=== PATIENT | female | born 1945 | race Caucasian/White ===

== ENCOUNTER 2017-08-12 07:37 | Observation (INO) ==
[2017-08-12] MEDS ORDERED: SALINE FLUSH 10ml SYRINGE IVF PRN (07:48)
[2017-08-12] MEDS ORDERED: ALBUTEROL/IPRATROPIUM 2.5mg-0.5mg/3ml NEB AEROSOL ONE (07:49)
--- NOTE | 2017-08-12 08:01 | Emergency Department Report ---
General Adult HPI - General Chief complaint: Shortness of Breath/Dyspnea Stated complaint: soa Time Seen by Provider: 08/12/17 07:48 Source: patient Mode of arrival: ambulatory Limitations: no limitations - History of Present Illness HPI narrative: 71-year-old female presents to the emergency department with the chief complaint of dyspnea. She notes the dyspnea increases with exertion and improves with rest. She denies any current pain or discomfort. She states that she was at home when her symptoms began on Tuesday of this past week. On Tuesday she saw her primary care physician and was given a breathing treatment and Solu-Medrol and had a chest x-ray performed. She is unaware of the results of the chest x-ray. She has no other complaints or associated symptoms at this time. Symptoms been persistent in nature since onset. She does note a mild nonproductive cough. - Related Data Home Medications Medication Instructions Recorded Confirmed Fish Oil/[place]-3 Fatty Acids (Fish 1 cap PO DAILY #0 01/22/09 08/12/17 Oil 1,000 Mg Capsule) Aspirin 325 mg PO PRN #0 02/24/11 08/12/17 Guaifenesin (Mucinex) 1 tab PO PRN #0 02/24/11 08/12/17 L. Acidophilus/Pectin, [place] 1 udtab PO DAILY #0 05/06/11 08/12/17 [Acidophilus Caplet] Losartan Potassium [Cozaar] 100 mg PO DAILY #0 05/06/11 08/12/17 Aspirin [Aspirin EC] 2 tab PO DAILY #0 08/13/14 08/12/17 Aspirin/Acetaminophen/Caffeine 1 tab PO Q6H PRN #0 tab 08/13/14 08/12/17 [Excedrin Migraine Caplet] Aspirin/Calcium Carbonate/Mag 2 tab PO DAILY #0 08/13/14 08/12/17 [Aspirin Buffered 325 mg Tab] Beclomethasone Dipropionate 2 spray LOYD BID PRN #0 08/13/14 08/12/17 [Beconase Aq] Fexofenadine HCl [Clarisse Allergy] 1 tab PO DAILY #0 tab 08/13/14 08/12/17 Liraglutide [Victoza] 1.8 mg SQ HS #0 08/13/14 08/12/17 Magnesium Oxide [Magnesium] 500 mg PO DAILY PRN #0 cap 08/13/14 08/12/17 Melatonin/Pyridoxine [Melatonin 3 2 tab PO HS PRN #0 08/13/14 08/12/17 mg Tablet] Meloxicam 15 mg PO DAILY PRN #0 tab 08/13/14 08/12/17 Omeprazole 1 cap PO HS #0 cap 08/13/14 08/12/17 Pioglitazone HCl/Metformin HCl 1 tab PO DAILY #0 tab 08/13/14 08/12/17 [Actoplus Met 15 mg-500 mg Tab] Tramadol HCl 50 mg PO Q6HR PRN #0 tab 08/13/14 08/12/17 Allergies Allergy/AdvReac Type Severity Reaction Status Date / Time regadenoson Allergy Mild RASH Verified 08/12/17 09:14 amoxicillin Allergy Unknown Verified 08/12/17 09:14 Review of Systems Constitutional: Denies: fever, chills Eyes: Denies: eye pain, vision change ENT: Denies: ear pain, throat pain Cardiovascular: Denies: chest pain, palpitations Respiratory: Reports: cough, dyspnea Gastrointestinal: Denies: abdominal pain, nausea, vomiting, diarrhea Genitourinary: Denies: urgency, dysuria Integumentary: Denies: erythema, rash Neurological: Denies: headache, numbness Psychiatric: Denies: anxiety, depression Endocrine: Denies: polydipsia, polyuria Hematological/Lymphatic: Denies: easy bruising, lymphadenopathy Allergic/Immunologic: Denies: facial swelling, urticaria PFSH Patient Stated Medical History Migraine Yes: HX Hypertension Yes Bronchitis Yes: HX Sleep Apnea Yes Other Respiratory Yes: SEASONAL Diabetes Mellitus Type 2 Yes Surgical History: Cardiac Catheterization Family History: Reviewed and Noncontributory. - Social History Smoking status: Never smoker Substance use type: does not use Alcohol intake frequency: does not drink Physical Exam - Limitations Limitations: no limitations - General General appearance: alert, in no apparent distress - Normal Exams: Head:: Normocephalic without trauma Eyes:: Pupils are PERRLA w/ EOMI, No scleral icterus, irritation, or foreign bodies noted ENMT:: No facial trauma, nasal exudates, pharyngeal erythema, or exudates are noted Dental: No fractured, loose, or missing teeth noted Neck:: Full range of motion, without adenopathy, JVD, bruits or thyromegaly Chest/Respirations:: Clear all smith, with good airflow, and symmetry bilaterally Cardiovascular:: Regular rate and rhythm, without murmur or gallop, Pulses 2+ all extremities, capillary refill, <2 seconds all extremities Abdomen:: Bowel sounds positive, soft, non-tender, non-distended, no hepatosplenomegaly, masses or bruits noted Lymphatic:: No lymphadenopathy, or lymphedema noted Musculoskeletal:: No tenderness, or deformity noted, good range of motion, all extremities (Trace BLE edema. ) Integumentary:: No rashes, hives, or bruising noted, hair and nails, without abnormality Neurological:: Patient is alert, and oriented, cranial nerves, motor/sensory/ cerebellar, exams w/o gross deficits, to observation Course Vital Signs Temperature 98.4 F 08/12/17 07:37 Pulse Rate 86 08/12/17 07:37 Respiratory Rate 26 H 08/12/17 07:37 Blood Pressure 178/82 H 08/12/17 07:37 Pulse Oximetry 99 08/12/17 07:37 Temperature 98.4 F 08/12/17 07:37 Pulse Rate 86 08/12/17 07:37 Respiratory Rate 20 08/12/17 07:59 Blood Pressure 149/66 H 08/12/17 09:26 Pulse Oximetry 96 08/12/17 07:59 Medical Decision Making - [facility] Narrative Medical decision making narrative: Labs / imaging were discussed in detail with the patient and family and questions are answered. Patient is reviewed with her network control supervisor Dr. Duarte who is in agreement with the current plan of management. Patient was given 324 mg of ASA po x 1. She was given 40 mg of Lasix iv x 1. No further orders from accepting physician who is in agreement with the current plan of management. Patient was accepted to the service of cardiology for further evaluation and treatment. Patient is admitted to the hospital in improved condition. Patient and family are in agreement with the current plan of management. - Differential Diagnosis Viral syndrome, PNA, CHF, Asthma,COPD - Lab Data Result diagrams: 08/12/17 08:04 08/12/17 08:04 Lab Results 08/12/17 08/12/17 Range/Units 08:04 08:04 WBC 14.9 H (4.5-11.0) T/MM3 RBC 3.24 L (4.00-5.20) M/MM3 Hgb 10.5 L (12-16) GM/DL Hct 33.4 L (36-46) % MCV 103.1 H (80-100) UM3 MCH 32.4 (26-34) UUG MCHC 31.4 (31-37) GM/DL RDW Std Deviation 47.5 (36.9-50.2) FL Plt Count 483 H (130-400) T/MM3 MPV 10.7 (9.4-12.4) UM3 Immature Gran % (Auto) Not performed Neut % (Auto) Not performed Lymph % (Auto) Not performed [place] % (Auto) Not performed Eos % (Auto) Not performed Baso % (Auto) Not performed Neut # (Auto) Not performed Lymph # (Auto) Not performed [place] # (Auto) Not performed Eos # (Auto) Not performed Baso # (Auto) Not performed Abs Immat Gran (auto) Not performed Neutrophils % (Manual) 66.0 (33-66) % Band Neutrophils % 4.0 (0-6) % Lymphocytes % (Manual) 13.0 L (23-45) % Monocytes % (Manual) 11.0 H (0-9.0) % Metamyelocytes % 4.0 H (0-0) % Myelocytes % 2.0 H (0-0) % Neutrophils # (Manual) 9.8 H (1.8-7.7) T/MM3 Band Neutrophils # 0.6 T/MM3 Lymphocytes # (Manual) 1.9 (1-4.8) T/MM3 Monocytes # (Manual) 1.6 H (0-0.8) T/MM3 Metamyelocytes # 0.6 T/MM3 Myelocytes # 0.3 T/MM3 RBC Morph Comment Normal Turbidity < 20 (0-20) Sodium 145 H (134-144) MEQ/L Potassium 4.3 (3.6-5) MEQ/L Chloride 108 H (98-107) MEQ/L Carbon Dioxide 22 (22-30) MEQ/L Anion Gap 15 (5-15) meq/L BUN 24.0 H (7-17) MG/DL Creatinine 1.1 (0.7-1.2) mg/dL GFR Calculation 49 BUN/Creatinine Ratio 22 (6-26) RATIO Glucose 124 H (65-110) MG/DL Calculated Osmolality 284 H (261-280) MOSM/KG Calcium 10.6 H (8.4-10.2) MG/DL Total Bilirubin 0.50 (0.20-1.30) MG/DL Icterus Index < 2 (0-7) AST 51 H (14-36) U/L ALT 30 (1-35) U/L Alkaline Phosphatase 57 (38-126) U/L Troponin I 0.045 (0-0.12) ng/ml NT-Pro-B Natriuret Pep 1590 H (0-175) pg/mL Total Protein 7.3 (6.3-8.2) g/dL Albumin 4.4 (3.5-5.0) g/dL Globulin 2.9 (2.4-3.6) G/DL Albumin/Globulin Ratio 1.5 (1.1-2.2) RATIO Specimen Hemolysis < 15 (0-25) - Radiology Data CXR - Impression: Persistent mild CHF. - EKG Data EKG #1 EKG results narrative: Sinus rhythm. 72 bpm. No STEMI. Disposition Clinical Impression: Congestive heart failure Qualifiers: Heart failure type: unspecified Heart failure chronicity: unspecified Qualified Code(s): I50.9 - Heart failure, unspecified [place]position: 02 [place] [facility] [place]: Stable Prescriptions: No Action Guaifenesin (Mucinex) 1 tab PO PRN #0 Aspirin/Acetaminophen/Caffeine [Excedrin Migraine Caplet] 1 tab PO Q6H PRN # 0 tab PRN Reason: PAIN Omeprazole 1 cap PO HS #0 cap Fish Oil/[place]-3 Fatty Acids (Fish Oil 1,000 Mg Capsule) 1 cap PO DAILY #0 Aspirin 325 mg PO PRN #0 L. Acidophilus/Pectin, [place] [Acidophilus Caplet] 1 udtab PO DAILY #0 Losartan Potassium [Cozaar] 100 mg PO DAILY #0 Fexofenadine HCl [[place]isse Allergy] 1 tab PO DAILY #0 tab Beclomethasone Dipropionate [Beconase Aq] 2 spray LOYD BID PRN #0 PRN Reason: PRN ORDERS Pioglitazone HCl/Metformin HCl [Actoplus Met 15 mg-500 mg Tab] 1 tab PO DAILY #0 tab Liraglutide [Victoza] 1.8 mg SQ HS #0 Aspirin/Calcium Carbonate/Mag [Aspirin Buffered 325 mg Tab] 2 tab PO DAILY #0 Aspirin [Aspirin EC] 2 tab PO DAILY #0 Meloxicam 15 mg PO DAILY PRN #0 tab PRN Reason: PRN ORDERS Tramadol HCl 50 mg PO Q6HR PRN #0 tab PRN Reason: PAIN Melatonin/Pyridoxine [Melatonin 3 mg Tablet] 2 tab PO HS PRN #0 PRN Reason: PRN ORDERS Magnesium Oxide [Magnesium] 500 mg PO DAILY PRN #0 cap PRN Reason: PRN ORDERS Referrals: Ced Addison DO [Primary Care Provider] - Time of Disposition: 09:00 (Admit. Dr. Duarte. ) - Seen By: physician
--- NOTE | 2017-08-12 08:19 | XRay Report ---
Indication: sob PROCEDURE: XR chest 1V: Encounter: Initial Comparison: August 10, 2017 Findings: There is persistent mild edema. No lobar pneumonia, pleural effusion or pneumothorax. Cardiomediastinal contours are stable. Impression: Persistent mild CHF. .
[2017-08-12] MEDS ORDERED: FUROSEMIDE 40 MG/4 ML INJECTION IVP ONE (09:21)
[2017-08-12] MEDS ORDERED: ASPIRIN 81 MG CHEWABLE TABLET PO ONE (09:21)
[2017-08-12 09:58] VITALS: BMI 32.1
--- NOTE | 2017-08-12 12:01 | Cardiology History & Physical ---
History of Present Illness Chief complaint: Dyspnea HPI: Laurie is a 71-year-old female who is well known to Dr. Duarte with a history of CAD with stent, HTN, DM II and allergies who presented to the ED with dyspnea. She notes the dyspnea increases with exertion and improves with rest. She denies any current pain or discomfort. She states that she was at home when her symptoms began on Tuesday of this past week. On Tuesday she saw her primary care physician and was given a breathing treatment and Solu-Medrol and had a chest x-ray performed. She is unaware of the results of the chest x-ray. Dr. Boone was contacted for admission for further eval;uation of dyspnea. She reports abdominal pain and diarrhea shortly after Easter which had a foul smell and she was treated with Flagyl by her PCP. She reports frequent dry cough that is nonproductive the last few weeks but she attributed it to allergies. She reports having some ankle pain and swelling which occurred over a couple of days when she felt feverish and had temps of 99.1-100.1. She reports chest tightness associated with being unable to breath deeply. Review of Systems - Constitutional Constitutional: Present: fever(s). Absent: chills, fatigue - EENMT Eyes: Absent: change in vision Balance: Absent: vertigo Mouth/Throat: Absent: sore throat - Cardiovascular Cardiovascular: Present: dyspnea on exertion, orthopnea, edema. Absent: chest pain, palpitations, syncope Vascular: Present: pedal edema - Respiratory Respiratory: Present: cough, dyspnea, dyspnea on exertion - Gastrointestinal Gastrointestinal: Absent: abdominal pain, constipation, nausea, vomiting - Genitourinary Genitourinary: Absent: dysuria - Integumentary/Breasts Integumentary: Absent: rash - Neurological Neurological: Absent: dizziness - Endocrine Endocrine: Absent: palpitations PFSH CASHD depressive disorder diabetes mellitus GERD HTN Surgical History: Cardiac Catheterization Stent Left circ. Left TKA 2014. Tubal Ligation Family History: Father - of [place], unknown age - Social History Smoking status: Never smoker Substance use type: does not use Alcohol intake frequency: does not drink Household members: spouse Current occupational status: retired Current residence: Apartment/Private Home Medications Home Medications Medication Instructions Recorded Confirmed Type Fish Oil/[place]-3 Fatty Acids (Fish 1 cap PO DAILY #0 01/22/09 08/12/17 History Oil 1,000 Mg Capsule) Aspirin 325 mg PO PRN #0 02/24/11 08/12/17 History Guaifenesin (Mucinex) 1 tab PO PRN #0 02/24/11 08/12/17 History L. Acidophilus/Pectin, [place] 1 udtab PO DAILY #0 05/06/11 08/12/17 History [Acidophilus Caplet] Losartan Potassium [Cozaar] 100 mg PO DAILY #0 05/06/11 08/12/17 History Aspirin/Acetaminophen/Caffeine 1 tab PO Q6H PRN #0 tab 08/13/14 08/12/17 History [Excedrin Migraine Caplet] Aspirin/Calcium Carbonate/Mag 2 tab PO DAILY #0 08/13/14 08/12/17 History [Aspirin Buffered 325 mg Tab] Beclomethasone Dipropionate 2 spray LOYD BID PRN #0 08/13/14 08/12/17 History [Beconase Aq] Fexofenadine HCl [Clarisse Allergy] 1 tab PO DAILY #0 tab 08/13/14 08/12/17 History Liraglutide [Victoza] 1.8 mg SQ HS #0 08/13/14 08/12/17 History Magnesium Oxide [Magnesium] 500 mg PO DAILY PRN #0 cap 08/13/14 08/12/17 History Melatonin/Pyridoxine [Melatonin 3 2 tab PO HS PRN #0 08/13/14 08/12/17 History mg Tablet] Meloxicam 15 mg PO DAILY PRN #0 tab 08/13/14 08/12/17 History Omeprazole 1 cap PO HS #0 cap 08/13/14 08/12/17 History Pioglitazone HCl/Metformin HCl 1 tab PO DAILY #0 tab 08/13/14 08/12/17 History [Actoplus Met 15 mg-500 mg Tab] Tramadol HCl 50 mg PO Q6HR PRN #0 tab 08/13/14 08/12/17 History Allergies Allergy/AdvReac Type Severity Reaction Status Date / Time regadenoson Allergy Mild RASH Verified 08/12/17 09:14 amoxicillin Allergy Unknown Verified 08/12/17 09:14 Exam Vital signs: Temperature 98.4 F 08/12/17 07:37 Pulse Rate 80 08/12/17 09:56 Respiratory Rate 18 08/12/17 09:56 Blood Pressure 159/71 H 08/12/17 09:56 Pulse Oximetry 100 08/12/17 09:56 - Constitutional no acute distress, well nourished, cooperative - Routine HEENT Exam Head: Present: normocephalic ENT: Present: mucous membranes moist - Routine Neck Exam Absent: JVD, carotid bruit - Routine Chest/Breast/Axilla Exam Chest wall: Absent: tenderness - Routine Respiratory Exam Present: CTA bilaterally, diminished air movement (bases). Absent: dyspnea - Routine Cardiovascular Exam Present: RRR, murmur (II/) - Routine Abdominal Exam Present: soft, non tender - Routine Extremities Exam Present: no edema - Routine Skin Exam Present: intact, dry, warm - Routine Neurological Exam Present: alert, oriented X3 - Routine Psychiatric Exam Present: normal affect, normal thought process Results 08/12/17 08:04 08/12/17 08:04 Intake and Output 08/11/17 08/12/17 08/12/17 22:59 06:59 14:59 Other: Weight 164 lb 10.965 oz Patient Weight 08/13/17 06:59 Weight 164 lb 10.965 oz - Imaging and Cardiology Echo: pending EKG interpretations - EKG EKG results cardiology: sinus rhythm Hospital Course This is a general summary of the patient's hospital course. For more details refer to the complete medical record. Time spent with patient: 25 - 35 minutes Resuscitation Status: Full Code Assessment and Plan - Assessment and Plan (1) Congestive heart failure Problem details: diastolic Current visit: Yes Status: Acute DCHF: 2D echo - EF 64% - Lasix 40mg po daily - Stop chlorthalidone - potassium 20meq - home tomorrow (2) Atherosclerotic heart disease of [place] coronary artery without angina pectoris Current visit: Yes Status: Acute (3) Essential (primary) hypertension Current visit: Yes Status: Acute (4) Type 2 diabetes mellitus without complications Current visit: Yes Status: Acute - Assessment and Plan Congestive heart failure Problem details: diastolic Current visit: Yes Status: Acute 2D echo - EF 64% - Lasix 40mg po daily - Stop chlorthalidone - potassium 20meq Atherosclerotic heart disease of [place] coronary artery without angina pectoris Current visit: Yes Status: Acute - Continue risk management Essential (primary) hypertension Current visit: Yes Status: Acute - Well controlled on current therapy, continue current therapy with routine monitoring Type 2 diabetes mellitus without complications Current visit: Yes Status: Acute - PCP (Dr. Addison) manages
[2017-08-12] MEDS ORDERED: MAGNESIUM OXIDE 500 MG PO PRN (15:29)
[2017-08-12] MEDS ORDERED: TRAMADOL 50 MG TABLET PO PRN (15:29)
[2017-08-12] MEDS ORDERED: MELATONIN PO PRN (15:29)
[2017-08-12] MEDS ORDERED: [UNRECOGNIZED DRUG - OTHER] PO PRN (15:29)
[2017-08-12] MEDS ORDERED: PYRIDOXINE PO PRN (15:29)
[2017-08-12] MEDS ORDERED: GUAIFENESIN PO SCH (15:30)
[2017-08-12] MEDS: FUROSEMIDE 40 MG TABLET PO SCH (15:50)
[2017-08-12] MEDS: ENOXAPARIN 40 MG/0.4 ML INJECTION SQ SCH (15:50)
[2017-08-12] MEDS ORDERED: GUAIFENESIN LA 600 MG TABLET PO PRN (16:42)
[2017-08-12] MEDS ORDERED: OMEPRAZOLE PO SCH (21:00)
[2017-08-12] MEDS ORDERED: MELATONIN 1 MG TABLET PO PRN (21:00)
[2017-08-12] MEDS ORDERED: OMEPRAZOLE 20 MG CAPSULE PO SCH (21:00)
[2017-08-13 07:54] VITALS: RESP 18
[2017-08-13] MEDS ORDERED: --POM--METFORMIN 500 MG TABLET PO SCH (08:00)
[2017-08-13] MEDS: ENOXAPARIN 40 MG/0.4 ML INJECTION SQ SCH (08:59)
[2017-08-13] MEDS: FUROSEMIDE 40 MG TABLET PO SCH (08:59)
[2017-08-13] MEDS ORDERED: PIOGLITAZONE 15 MG PO SCH (09:00)
[2017-08-13] MEDS ORDERED: FEXOFENADINE 180 MG TABLET PO SCH (09:00)
[2017-08-13] MEDS ORDERED: OMEGA PO SCH (09:00)
[2017-08-13] MEDS ORDERED: OMEGA-3 ACID ESTERS 1 GM CAPSULE PO SCH (09:00)
[2017-08-13] MEDS ORDERED: --POM--LOSARTAN 100 MG TABLET PO SCH (09:00)
[2017-08-13] MEDS ORDERED: [UNRECOGNIZED DRUG - OTHER] PO SCH (09:00)
[2017-08-13] MEDS ORDERED: FATTY ACIDS PO SCH (09:00)
[2017-08-13] MEDS ORDERED: METFORMIN HCL PO SCH (09:00)
[2017-08-13] MEDS ORDERED: MAGNESIUM OXIDE 400 MG TABLET PO SCH (09:00)
[2017-08-13] MEDS ORDERED: [UNRECOGNIZED DRUG - OTHER] PO SCH (09:00)
[2017-08-13] MEDS ORDERED: PIOGLITAZONE HCL PO SCH (09:00)
[2017-08-13] MEDS ORDERED: ASPIRIN, BUFFERED 325 MG TABLET PO SCH (09:00)
[2017-08-13] MEDS ORDERED: FISH OIL PO SCH (09:00)
[2017-08-13 11:45] VITALS: BP 135/62; PULSE 61; TEMP 97; O2SAT 98
--- NOTE | 2017-08-13 14:06 | Discharge Summary ---
Discharge Information Date of admission: 08/12/17 09:46 Attending Physician: Charles Duarte MD Primary care physician: Ced Addison, DO - Discharge Diagnosis (1) Congestive heart failure Status: Acute (2) Atherosclerotic heart disease of [place] coronary artery without angina pectoris Status: Acute (3) Essential (primary) hypertension Status: Acute (4) Type 2 diabetes mellitus without complications Status: Acute - Laboratory Labs: 08/13/17 05:09 08/13/17 05:09 History of Present Illness HPI: Laurie is a 71-year-old female who is well known to Dr. Duarte with a history of CAD with stent, HTN, DM II and allergies who presented to the ED with dyspnea. She notes the dyspnea increases with exertion and improves with rest. She denies any current pain or discomfort. She states that she was at home when her symptoms began on Tuesday of this past week. On Tuesday she saw her primary care physician and was given a breathing treatment and Solu-Medrol and had a chest x-ray performed. She is unaware of the results of the chest x-ray. Dr. Boone was contacted for admission for further eval;uation of dyspnea. She reports abdominal pain and diarrhea shortly after Easter which had a foul smell and she was treated with Flagyl by her PCP. She reports frequent dry cough that is nonproductive the last few weeks but she attributed it to allergies. She reports having some ankle pain and swelling which occurred over a couple of days when she felt feverish and had temps of 99.1-100.1. She reports chest tightness associated with being unable to breath deeply. Hospital Course This is a general summary of the patient's hospital course. For more details refer to the complete medical record. Time spent with patient: 25 - 35 minutes Exam Vital signs: Temperature 97.0 F 08/13/17 11:45 Pulse Rate 61 08/13/17 11:45 Respiratory Rate 18 08/13/17 11:45 Blood Pressure 135/62 08/13/17 11:45 Pulse Oximetry 98 08/13/17 11:45 - Constitutional no acute distress - Routine HEENT Exam Head: Present: normocephalic Eye: Present: EOMI Nose: moist mucous membranes - Routine Neck Exam Present: supple - Routine Chest/Breast/Axilla Exam Chest wall: Absent: tenderness - Routine Respiratory Exam Present: accessory muscle use - Routine Cardiovascular Exam Present: RRR, S1, S2 - Routine Abdominal Exam Present: soft, normoactive bowel sounds - Routine Extremities Exam Absent: clubbing, edema - Routine Back/Spine/Pelvis Exam Back/Spine: Present: full ROM - Routine Skin Exam Present: intact, dry - Routine Neurological Exam Present: alert, oriented X3 - Routine Psychiatric Exam Present: normal affect Results 08/13/17 05:09 08/13/17 05:09 Cardiac Enzymes 08/12/17 Range/Units 17:23 Troponin I 0.044 (0-0.12) ng/ml CBC 08/13/17 Range/Units 05:09 WBC 10.8 (4.5-11.0) T/MM3 RBC 3.49 L (4.00-5.20) M/MM3 Hgb 10.9 L (12-16) GM/DL Hct 34.8 L (36-46) % Plt Count 470 H (130-400) T/MM3 Comprehensive Metabolic Panel 08/13/17 Range/Units 05:09 Sodium 146 H (134-144) MEQ/L Potassium 3.1 L D (3.6-5) MEQ/L Chloride 103 (98-107) MEQ/L Carbon Dioxide 28 (22-30) MEQ/L BUN 27.0 H (7-17) MG/DL Creatinine 1.1 (0.7-1.2) mg/dL Glucose 105 (65-110) MG/DL Calcium 10.5 H (8.4-10.2) MG/DL Intake and Output 08/12/17 08/13/17 08/13/17 22:59 06:59 14:59 Intake Total 1300 / 1300 240 / 240 Output Total 900 / 900 Balance 400 / 400 240 / 240 Intake: Oral 1300 / 1300 240 / 240 Output: Urine 900 / 900 Other: Urine Appearance Clear Urine Color Pale Yellow Weight 77 kg Patient Weight 08/14/17 06:59 Weight 77 kg - EKG Interpretation EKG: WNL Discharge Plan - Med Rec/Dispo Referrals/Follow Up: Charles Duarte MD [Physician] - Prescriptions: New Furosemide [Lasix 40 mg Tab] 40 mg PO DAILY #30 tab Potassium Chloride 10 meq PO DAILY #30 capsule.er Continue Guaifenesin (Mucinex) 1 tab PO PRN #0 Aspirin/Acetaminophen/Caffeine [Excedrin Migraine Caplet] 1 tab PO Q6H PRN # 0 tab PRN Reason: PAIN Omeprazole 1 cap PO HS #0 cap Fish Oil/[place]-3 Fatty Acids (Fish Oil 1,000 Mg Capsule) 1 cap PO DAILY #0 L. Acidophilus/Pectin, [place] [Acidophilus Caplet] 1 udtab PO DAILY #0 Losartan Potassium [Cozaar] 100 mg PO DAILY #0 Fexofenadine HCl [Clarisse Allergy] 1 tab PO DAILY #0 tab Beclomethasone Dipropionate [Beconase Aq] 2 spray LOYD BID PRN #0 PRN Reason: PRN ORDERS Pioglitazone HCl/Metformin HCl [Actoplus Met 15 mg-500 mg Tab] 1 tab PO DAILY #0 tab Liraglutide [Victoza] 1.8 mg SQ HS #0 Aspirin/Calcium Carbonate/Mag [Aspirin Buffered 325 mg Tab] 2 tab PO DAILY #0 Meloxicam 15 mg PO DAILY PRN #0 tab PRN Reason: PRN ORDERS Tramadol HCl 50 mg PO Q6HR PRN #0 tab PRN Reason: PAIN Melatonin/Pyridoxine [Melatonin 3 mg Tablet] 2 tab PO HS PRN #0 PRN Reason: PRN ORDERS Magnesium Oxide [Magnesium] 500 mg PO DAILY PRN #0 cap PRN Reason: PRN ORDERS No Action Aspirin 325 mg PO PRN #0 - Disposition 01 Discharged Home, Self-Care - Dismissal Complete Discharge Instructions are:: Complete
--- NOTE | 2017-08-13 18:04 | Echocardiogram ---
DATE OF PROCEDURE August 12, 2017 This is a two-dimensional echo with spectral Doppler, color-flow and M-mode. It was obtained in a patient with dyspnea. Left atrial dimension is normal. Left ventricle end-diastolic dimension is normal. Left ventricle wall thickness is normal. LV systolic function is normal with ejection fraction of 64%. Right atrium is normal. Right ventricle is normal. Aortic root dimension is normal. Mitral valve is morphologically normal with mild mitral regurgitation. Aortic valve shows fibrocalcific changes with no stenosis. Mild aortic insufficiency is present. Tricuspid valve shows mild tricuspid regurgitation with estimated pulmonary artery systolic pressure of 34. Pulmonary valve shows trace of pulmonary insufficiency. There is no pericardial effusion. IMPRESSION 1. Normal LV systolic function with ejection fraction of 64%. 2. Mild mitral regurgitation. 3. Aortic sclerosis with mild aortic insufficiency. 4. Mild tricuspid regurgitation with estimated pulmonary artery systolic pressure of 34. 5. Trace of pulmonary insufficiency. MTDD
== END 2017-08-13 14:30 | disposition home or self-care (01) ==
LOC: ED 07:37 → EDHOLD 07:37 → MED 09:53
PROVIDERS: ADMIT Internal Medicine Cardiovascular Disease; ATTEND Internal Medicine Cardiovascular Disease